=== PATIENT | male | born 1955 | race Caucasian/White ===

== ENCOUNTER → 2017-05-11 | Outpatient (CLI) | payer OTHER ==
[~2017-05-11] MED LIST: AMLO-110 PO; FRS/40 PO; GLC/500 PO; INSDGI SC; LISI40TA PO; SIMV40TA2 PO
[2017-05-11 13:31] LABS: ESTIMATED AVERAGE GLUCOSE 169 mg/dl; HA1C FLAG Normal (Normal)
== END | disposition home or self-care (01) ==
LOC: C.LABPVFM 08:50
PROVIDERS: ATTEND Family Medicine
DX: E11.9 Type 2 diabetes mellitus without complications (principal)

== ENCOUNTER → 2017-08-14 | Outpatient (CLI) | payer OTHER ==
[2017-08-14 12:30] LABS: HEMATOCRIT 50.1 % (42-52); MEAN CELL VOLUME 88.5 fL (80-100); MEAN CORPUSCULAR HEMOGLOBIN 29.9 pg (25-34); MEAN CORPUSCULAR HGB CONC 33.7 g/dl (32-36); MEAN PLATELET VOLUME 10.3 fL (7.4-10.4); PLATELET COUNT 221 K/uL (130-400); RED BLOOD COUNT 5.66 M/uL (4.7-6.1); WHITE BLOOD COUNT 8.03 K/uL (4.8-10.8)
[2017-08-14 13:05] LABS: ESTIMATED AVERAGE GLUCOSE 157 mg/dl; HA1C FLAG Normal (Normal)
[2017-08-14 14:19] LABS: ALT/SGPT 38 U/L (12-78); AST/SGOT 14 U/L (15-37); BLOOD UREA NITROGEN 18 mg/dl (7-18); BUN/CREATININE RATIO 20.1 (10-20); CALCIUM 9.1 mg/dl (8.5-10.1); CARBON DIOXIDE 21 mmol/L (21-32); CHLORIDE 107 mmol/L (98-107); CHOLESTEROL 164 mg/dl (0-200); CREATININE 0.91 mg/dl (0.60-1.40); GLUCOSE 162 mg/dl (70-99); POTASSIUM 4.1 mmol/L (3.5-5.1); SODIUM 140 mmol/L (136-145)
[2017-08-14 14:21] LABS: CHOLESTEROL/HDL RATIO 3.6; HDL CHOLESTEROL 45 mg/dl; LDL CHOLESTEROL CALCULATED 92 mg/dl; TRIGLYCERIDES 136 mg/dl (0-150); VERY LOW DENSITY LIPOPROT CALC 27 mg/dl
== END | disposition home or self-care (01) ==
LOC: C.LABPVFM 09:52
PROVIDERS: ATTEND Family Medicine
DX: E78.5 Hyperlipidemia, unspecified (principal); I10 Essential (primary) hypertension; E11.9 Type 2 diabetes mellitus without complications

== ENCOUNTER → 2018-02-26 | Day surgery (SDC) | payer OTHER ==
[2018-02-02 10:14] VITALS: Ht 182.9 cm; Wt 170.4 kg
[~2018-02-26] VITALS: Ht 182.9 cm; Wt 170.4 kg
[~2018-02-26] MED LIST changes: +500ML BSS 0.3ML EPI 1:1000PF IRRIG ONE; +ACETAMINOPHEN 325 MG TAB PO PRN; +AMVISC PLUS 0.8ML SYRINGE INT OCU ONE; +ASPCH81X PO; +ATROPINE SULFATE 0.1 MG/ML 5ML SYR IV PRN; +BRIMONIDINE TART 0.2% OP SOLN PER DROP CHARGE ONE; +BSS FLUSH ONE; +ENDOCOAT 0.85ML SYRINGE INT OCU ONE; +EpHEDrine SULFATE INJ 50 MG/ML AMP IV PRN; +EpINEphrine INJ 1MG/ML AMP 1 MG/ML AMP ONE; -FRS/40 PO; -GLC/500 PO; +LACTATED RINGER'S 1000ML 500 ML IV SCH; +LIDOCAINE 4% OP SOLN DROP CHARGE ONE; +LIDOCAINE 4% OP SOLN DROP CHARGE OPL SCH; +LIDOCAINE HCL 1% MPF 2 ML VIAL ONE; +METF1TAB53 PO; +MIDAZOLAM HCL 1 MG/ML 2ML VIAL ONE; +MIX: 3ML BSS AND 1ML EPI(PF) TOP ONE; +MOXIFLOXACIN OPH SOLN PER DROP CHARGE ONE; +NVLGI/PEN SC; +POVIDONE-IODINE OP SOLN 30 ML BTL ONE; +PROPARACAINE 0.5% OP SOLN PER DROP CHARGE OPL SCH; -SIMV40TA2 PO; +SIMV40TA4 PO; +TOBRAMYCIN/DEXAMETHASONE OPH OINT PER APPLN CHARGE ONE; +TRULICITY SC
--- NOTE | 2018-02-26 08:10 | History & Physical Bridge - SC ---
H&P Re-Evaluation Bridge Note: I have examined the patient, reviewed the History & Physical and in the interval since the performance of the History & Physical I have noted the following changes of clinical significance: No changes noted
[2018-02-26] MEDS: PHENYLEPHRINE HCL 2.5% OP SOLN PER DROP CHARGE OPL SCH ×2 (08:11→08:16)
[2018-02-26] MEDS: TROPICAMIDE 1% OP SOLN PER DROP CHARGE OPL SCH ×2 (08:12→08:17)
[2018-02-26] MEDS: CYCLOPENTOLATE HCL 1% OP SOLN PER DROP CHARGE OPL SCH ×2 (08:13→08:18)
[2018-02-26] MEDS: KETOROLAC 0.5% OP SOLN PER DROP CHARGE OPL SCH ×2 (08:14→08:19)
[2018-02-26] MEDS: MOXIFLOXACIN OPH SOLN PER DROP CHARGE OPL SCH ×2 (08:15→08:26)
--- NOTE | 2018-02-26 09:06 | [facility] Operative Report ---
Operative Report Operative Date Feb 26, 2018. Pre-Operative Diagnosis Left Eye Cataract Post-Operative Diagnosis same Procedure(s) Performed Left Cataract Phacoemulsification With Intraocular Lens Implant Surgeon Dr. Atilio Bolton Employee Benefits Specialist Surgeon(s) 0 Estimated Blood Loss 0 Findings cataract left eye Fluids see anesthesia record Specimens none Drains None Anesthesia Type MAC Complication(s) none Disposition no Recovery Room / PACU Indications decreased vision left eye Description of Procedure After informed consent was obtained in the holding area the patient was wheeled back to the operating room where cardiac monitoring leads and oxygen by nasal cannula was administered by Anesthesia. Gentle IV sedation was given, and the patient's left eye was prepped and draped in usual sterile fashion. A wire lid speculum was placed into the left eye and the operating microscope was swung into position. Using 0.12 forceps and a Supersharp blade a paracentesis port was made 2 o'clock hours away from the 3 o'clock position of the patient's left eye. 1% non-preserved Lidocaine was then injected into the anterior chamber for anesthesia. Flomax mix was injected into the eye. A 2.0 mm keratotome blade was then used to make a shelved clear corneal incision at the 3 o'clock position of the left eye. Amvisc was injected into the anterior chamber and a cystotome and Utrata forceps were used to perform a curvilinear capsulorrhexis. BSS on a hydrodissection cannula was used to hydrodissect the lens nucleus away from the capsular bag. The phacoemulsification handpiece was then used in a stop and chop fashion to remove the lens nucleus. The irrigation and aspiration handpiece was then used to remove the residual cortical material. Amvisc was injected into the capsular bag and anterior chamber and a Bausch [employer] Lomb MX60E 19.0 Diopter intraocular lens was injected into the capsular bag. Irrigation and aspiration handpiece was used to remove the residual viscoelastic material. The wounds were hydrated and noted to be watertight. The wire lid speculum was removed from the eye. Vigamox, Brimonidine, and TobraDex ointment were placed on the eye and it was shielded. It should be noted that EndoCoat was used extensively during the case to protect the cornea endothelium. DISPOSITION: The patient tolerated the procedure well and was wheeled to the post anesthesia care unit in stable condition. I attest to the content of the Intraoperative Record and any orders documented therein. Any exceptions are noted below. I attest to the content of the Intraoperative Record and any orders documented therein. Any exceptions are noted below.
--- NOTE | 2018-02-26 09:07 | Discharge Instructions-SurgCtr ---
Discharge Instructions Date of Service Feb 26, 2018. Visit Reason for Visit: Cataract Left Eye Discharge Discharge Diagnosis / Problem: cataract left eye Discharge Goals Goal(s): Improve function Medications Stopped Medications Name(s): metformin. last dose . Activity Recommendations Activity Limitations: per Instructions/Follow-up section Lifting Limitations: no more than 5 pounds Anesthesia . Post Anesthesia Instructions: If you have had General Anesthesia or IV Sedation: * Do not drive today. * Resume driving when surgeon permits. * Do not make important decisions or sign legal documents today. * Call surgeon for: 1. Temperature elevations greater than 101 degrees F. 2. Uncontrollable pain. 3. Excessive bleeding. 4. Persistent nausea and vomiting. 5. Medication intolerance (nausea, vomiting or rash). * For nausea and vomiting use only clear liquids such as: tea, soda, bouillon until nausea subsides, then gradually increase diet as tolerated. * If you have any concerns or questions, call your surgeon's office. If physician is unavailable and it is an emergency, call 911 or go to the nearest emergency room. . Instructions / Follow-Up Instructions / Follow-Up ACTIVITY RECOMMENDATIONS: * Light activities * You may walk outside, read, watch television. * Mild irritation and blurred vision are common for the first few days, redness around the white part of the eye is common. MEDICATIONS: Resume previous medications unless instructed otherwise by your surgeon. Eye drops (today and tomorrow): Cipro - one drop in operative eye every 2 hours while awake Prednisolone 1% - one drop in operative eye every 2 hours while awake Bromfenac - one drop in operative eye once daily SPECIAL CARE INSTRUCTIONS: * If any problems or concerns, please call Dr. Bolton's office at . * Keep plastic shield taped over eye to sleep at night. * Keep plastic shield taped over eye except to administer eye drops. * Keep plastic shield on until office visit the following day. FOLLOW UP VISIT: Follow-up with Dr. Bolton in the [place] office as scheduled. If not already scheduled, please call the office at . Diet Recommendations Home Diet: resume previous diet Procedures Procedures Performed: Left Cataract Phacoemulsification With Intraocular Lens Implant Pending Studies Studies pending at discharge: no Medical Emergencies . Who to Call and When: Medical Emergencies: If at any time you feel your situation is an emergency, please call 911 immediately. . Non-Emergent Contact Non-Emergency issues call your: [employer] Supervisor . . "Provider Documentation" section prepared by Tamir Bolton. .
[2018-02-26 09:10] VITALS: TEMP 36.3
--- NOTE | 2018-02-26 09:31 | Anesthesiology Progress Note ---
Anesthesia Post Op Note Date & Time Feb 26, 2018 at 09:30 Vital Signs Pain Intensity: 0 Vital Signs Past 12 Hours Date Time Temp Pulse Resp B/P (MAP) Pulse Ox O2 Delivery O2 Flow Rate FiO2 02/26/18 09:10 36.3 76 18 117/62 (80) 95 Room Air 02/26/18 07:55 36.9 80 18 167/96 (119) 97 Room Air Notes Mental Status: alert / awake / arousable, participated in evaluation Nausea / Vomiting: adequately controlled Pain: adequately controlled Airway Patency, RR, SpO2: stable & adequate BP & HR: stable & adequate Hydration State: stable & adequate Anesthetic Complications: no major complications apparent
[2018-02-26 09:33] VITALS: BP 151/70; PULSE 78; O2SAT 95
== END | disposition home or self-care (01) ==
LOC: X.SURG 07:29
PROVIDERS: ATTEND Ophthalmology
DX: E11.36 Type 2 diabetes mellitus with diabetic cataract (principal); H26.9 Unspecified cataract; I10 Essential (primary) hypertension; Z04.9 Encounter for examination and observation for unspecified reason; Z79.4 Long term (current) use of insulin; E66.9 Obesity, unspecified; Z79.899 Other long term (current) drug therapy; Z68.43 Body mass index [BMI] 50.0-59.9, adult

== ENCOUNTER 2019-03-26 05:17 | Inpatient (IN) ==
--- NOTE | 2019-02-26 15:48 | PAT Medication Instructions ---
Medication Instructions Date of Service February 26, 2019 Home Medications amlodipine 5 mg PO QAM aspirin [Aspir-81] 81 mg PO QAM dulaglutide [Trulicity] 0.75 mg SUBCUT WK insulin aspart U-100 [Novolog] 1 sliding scale dose SUBCUT insulin glargine [Lantus U-100] 60 unit SUBCUT QPM lisinopril 40 mg PO QAM metformin 1,000 mg PO BID simvastatin 40 mg PO QAM Continue as directed dulaglutide [Trulicity] 0.75 mg SUBCUT WK DO NOT take the morning of surgery insulin aspart U-100 [Novolog] 1 sliding scale dose SUBCUT lisinopril 40 mg PO QAM metformin 1,000 mg PO BID Take morning of surgery With a small sip of water, OTHERWISE NOTHING TO EAT OR DRINK AFTER MIDNIGHT: amlodipine 5 mg PO QAM aspirin [Aspir-81] 81 mg PO QAM simvastatin 40 mg PO QAM Take evening before surgery insulin aspart U-100 [Novolog] 1 sliding scale dose SUBCUT (as needed) insulin glargine [Lantus U-100] 60 unit SUBCUT QPM metformin 1,000 mg PO BID Other Notes If you have any questions please call us at [phone] or [phone] or [phone] or [phone]
--- NOTE | 2019-02-27 08:28 | Anesthesiology Consultation ---
Date of Service February 27, 2019 Assessment & Plan (1) Encounter for pre-operative examination: CHECK BSG AM DOS Chart Review Chart Review: Acceptable Risk for Surgery and Patient seen in Pre Admission Testing Teaching & Discussion Instructed NPO after midnight before surgery, except medications with 15 cc of water. Medication instructions provided according to the PAT guidelines. History Surgery Operation Date: 03/26/19 07:00 Proposed Procedures p Left Total Knee Arthroplasty - Terrance Colmenares MD Height/Weight Height: 6 ft Weight: 170.5 kg Allergies Allergy/AdvReac Type Severity Reaction Status Date / Time No Known Allergies Allergy . Verified 02/20/19 08:01 Medications Home Medications Medication Instructions Recorded Confirmed Last Taken amlodipine 5 mg PO QAM 02/20/19 02/20/19 Unknown aspirin [Aspir-81] 81 mg PO QAM 02/20/19 02/20/19 Unknown dulaglutide [Trulicity] 0.75 mg SUBCUT WK 02/20/19 02/20/19 Unknown insulin aspart U-100 [Novolog 1 sliding scale dose SUBCUT 02/20/19 02/20/19 Unknown U-100 Insulin aspart] USEASDIRECTD insulin glargine [Lantus U-100 60 unit SUBCUT QPM 02/20/19 02/20/19 Unknown Insulin] lisinopril 40 mg PO QAM 02/20/19 02/20/19 Unknown metformin 1,000 mg PO BID 02/20/19 02/20/19 Unknown simvastatin 40 mg PO QAM 02/20/19 02/20/19 Unknown Past Medical History Medical History Diabetes mellitus, type 2 Hyperlipidemia Hypertension Morbid (severe) obesity due to excess calories Osteoarthritis Exercise / Class Metabolic Activity II 4-5 Yardwork/Stairs/Walk up hill (Denies Cp or SOB with stairs, does daily) Past Surgical History Surgical History History of cataract extraction with lens replacement History of colonoscopy Past Anesthesia History No Hx of Anesthesia Complications and No Family Hx of Anesthesia Complications History of PONV No Hx of PONV, No Family Hx of PONV and No Hx of Motion Sickness Social History Smoking Status: Never smoker Smoking cigarettes per day: 0 Do You Dip or Chew Tobacco: No Hx Alcohol Use: Yes Alcohol type: other alcohol intake frequency: holidays/special occasions only Alcohol Intake Frequency Comment: RARE Hx Substance Use: No substance use type: does not use Review of Systems Pt denies any recent chest pain, shortness of breath, palpitations, cough, fever or URI. Physical Exam Vital Signs BP: 127/79 P: 90bpm SPO2: 95% RA T: 99.0 F R: 10 ENMT Mouth: + dental bridge (upper front) and + dental restorations (few caps); no chipped teeth and no loose teeth Thyromental Distance: > or= 3.5 Finger Breadths (3.5) Mallampati Class: II Neck + short neck, + thick neck, + limited neck extension (mildly) and + facial hair (long bushy thomas, but trimmed short around mouth) Respiratory normal respiratory effort Auscultation: lungs clear to auscultation bilaterally Cardiovascular Rate/Rhythm: regular rate and regular rhythm Heart Sounds: + murmur (I/ systolic R and L SB) Vessels: no carotid bruit Extremities: no edema Skin Chronic vascular insufficiency darkening of skin on B/L shins Testing Electrocardiogram Date: 02/27/19 Findings: + NSR @ (83) Chest X-Ray Date: 02/27/19 Findings: + NAD Laboratory Results 02/27/19 08:42 02/27/19 08:42 Blood Type O Positive 02/27/19 08:42 Antibody Screen NEGATIVE 02/27/19 08:42 PT 10.1 Seconds (9.0-12.0) 02/27/19 08:42 INR 1.0 (0.9-1.1) 02/27/19 08:42 APTT 25.4 Seconds (21.0-31.0) 02/27/19 08:42 Hemoglobin A1c 7.8 % (4.5-5.6) H 02/27/19 08:42
--- NOTE | 2019-02-27 09:54 | XRay Report ---
TWO VIEW CHEST CLINICAL HISTORY: Preoperative examination. FINDINGS: PA and lateral chest radiographs are compared to study dated 11/21/2009 and correlated with chest CT dated 04/01/2014. The cardiomediastinal silhouette is unremarkable. There is mild bibasilar a telectasis. The lungs and pleural spaces are otherwise clear. There is no pneumothorax. The bony thor ax appears intact. Degenerative change is noted throughout the thoracic spine. IMPRESSION: No active disease in the chest. Electronically signed by: David Coon M.D. 02/27/2019 9:53 AM
[2019-02-27 09:58] LABS: Basophils # (auto) 0.06 K/uL (0-0.2); Basophils % (auto) 0.5 %; Eosinophils % (auto) 2.6 %; Hematocrit (blood only) 47.4 % (42-52); Hemoglobin 16.3 g/dL (14.0-18.0); Immature Granulocytes # (auto) 0.08 K/uL (0.00-0.02); Immature Granulocytes % (auto) 0.7 %; Lymphocytes % (auto) 15.7 %; Mean Corpuscular Hgb Conc 34.4 g/dL (32-36); Mean Corpuscular Volume 88.1 fL (80-100); Mean Platelet Volume 10.2 fL (7.4-10.4); Monocytes # (auto) 0.86 K/uL (0.11-0.59); Monocytes % (auto) 7.5 %; Neutrophils # (auto) 8.34 K/uL (1.4-6.5); Platelet Count 246 K/uL (130-400); RDW Coefficient of Variation 13.9 % (11.5-14.5); RDW Standard Deviation 44.4 fL (36.4-46.3); Red Blood Count 5.38 M/uL (4.7-6.1); White Blood Count 11.44 K/uL (4.8-10.8)
[2019-02-27 10:08] LABS: Partial Thromboplastin Ratio 0.9; Partial Thromboplastin Time 25.4 Seconds (21.0-31.0); Prothrombin Time 10.1 Seconds (9.0-12.0)
[2019-02-27 10:12] LABS: BUN Creatinine Ratio 21.3 (10-20); Calcium 9.5 mg/dl (8.5-10.1); Creatinine Clr Calc Pharmacy 119.9 ml/min; Est GFR (African American) 90.7; Est GFR (Non-African American) 78.2; Potassium 4.5 mmol/L (3.5-5.1)
[2019-02-27 10:25] LABS: Estimated Average Glucose 177 mg/dl; Hemoglobin A1C 7.8 % (4.5-5.6)
--- NOTE | 2019-03-23 11:26 | History and Physical Report ---
DATE OF ADMISSION: 03/26/2019 CHIEF COMPLAINT: Bilateral knee pain and discomfort, left side greater than right. HISTORY OF PRESENT ILLNESS: A 64-year-old gentleman referred to me by my partner Dr. Felipe for surgical treatment of his knees. He has got a long history of bilateral knee pain and discomfort that has gradually gotten worse over the past 10 years. The left knee bothers him more than the right. He has been through extensive conservative treatment in the past including injections which have not helped at all lately. He has tried various different medicines which takes the edge off it at best. He has chronic pain. The more he walks, the more it hurts. It is global pain. His walking tolerance is a couple blocks. He has difficulty going up and down stairs. He has nighttime pain. He would like to proceed with surgical treatment. PAST MEDICAL HISTORY: 1. Diabetes x10-15 years with an A1c of 7.8. 2. Hypertension. 3. Elevated cholesterol. 4. Obesity with a BMI of 51. PAST SURGICAL HISTORY: None. ALLERGIES: None. CURRENT MEDICINES: 1. Metformin 100 mg twice a day. 2. Atorvastatin 40 mg. 3. Amlodipine 5 mg. 4. Tamsulosin 0.4 mg daily. 5. Lisinopril 40 mg. 6. Jeanette aspirin 81 mg a day. 7. Trulicity 1.5 mg once a week. 8. Lantus insulin 60 units once a day. 9. Humalog insulin 30 units with sliding scale meal time. SOCIAL HISTORY: A 63-year-old male. He is . Lives in [place]. 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 Rare alcohol intake. No tobacco use. FAMILY HISTORY: Noncontributory. REVIEW OF SYSTEMS: Significant for diabetes. Denies any chest pain, shortness of breath. No history of DVT or PE. No bleeding problems. PHYSICAL EXAMINATION: GENERAL: Reveals a very large middle-aged male. Looks to be in reasonably good health. HEENT: Benign. NECK: Supple. No lymphadenopathy. LUNGS: Clear to auscultation. HEART: Regular rate and rhythm. ABDOMEN: Soft, nontender, nondistended. EXTREMITIES: Grossly neurovascularly intact except as follows: Examination of both knees shows the patient walks with a bit of waddling gait. He has got varus alignment to both knees. Examination of left knee reveals varus alignment with bony hypertrophy medially. He is tender over the medial joint line. He has some small knee effusion. Range of motion 5-125. He has got some chronic stasis changes distally. No pain with hip motion. He is neurologically intact. Examination of the right knee reveals varus alignment. He has got bony hypertrophy medially with a small knee effusion. He is tender over the medial joint line. He has similar chronic stasis changes distally. No impending ulcerations. Range of motion 5-125. No instability. X-RAYS: X-rays of both knee revealed advanced bilateral knee DJD. Left side is a bit worse than the right. He has got complete loss of his medial joint space. He has got osteophytes off the medial femoral condyle and medial tibial plateau. 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 He has failed conservative treatment and would like to proceed with left knee replacement. PLAN: We are going to take him to the operating room and do a left total knee replacement. The risks and benefits of this procedure were explained to the patient including but not limited to DVT, PE, , infection, neurological injury, vascular injury, bleeding problem, pain, limited range of motion, stiffness, failure to relieve symptoms, incomplete relief of symptoms, need for further surgery in future, fracture, leg length inequality, nerve palsy, etc. The patient understands and desires to proceed. Informed consent was obtained. I did talk to him about his increased size and increased risk of infection, he is aware of this. We talked about holding his metformin and lisinopril the morning of surgery. We will have to control his swelling very carefully with his stasis changes. As far as discharge plans, he is planning to be discharged to home using [facility] home health program.
--- OUTSIDE RECORDS SUMMARY | 2019-03-26 05:20 | External Medical Summary | Continuity of Care Document ---
:1955 Author Name Ana Arias, Provider Address Unavailable Unavailable , Care Team Providers Name Role Phone Unavailable Unavailable Unavailable Jade Gandara Unavailable 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 FANNY Matta Quantity: 90 Refills: 3 Lisinopril 40 MG Oral Tablet; TAKE 1 TABLET DAILY D IRECTED. FANNY Matta Quantity: 90 Refills: 3 metFORMIN HCl - 1000 MG Oral Tablet; TAKE 1 TABLET TWI CE DAILY. FANNY Matta Quantity: 180 Refills: 3 OneTouch Verio In Vitro Strip; USE 1 STRIP 3 TIMES DAILY. , M.DEliane 100 Strip Box Quantity: 3 Refills: 3 BD Pen Needle Short U/F 31G X 8 MM; USE AND DISCARD 1 NEEDLE 3 TIMES A DAY FANNY Matta Start: 27-Dec-2012 Quantity: 90 Refills: 6 Lantus 100 UNIT/ML Subcutaneous Solution; inject 60 units @ MElianeDEliane 10 ML Vial Quantity: 6 Refills: 3 Procedures History of Oral Surgery Tooth Extraction Status: Completed Immunizations Influenza On: 01-Aug-2011 0:00 Influenza On: 2013 Family History Father Family history of cerebrovascular accident (CVA) (V17.1) (Z8 2.3) Status: Active Grandfather Family history of cerebrovascular accident (CVA) (V17.1) (Z8 2.3) Status: Active Social History - Smoking Status Never smoker Plan of Treatment Planned Observations Planned Goals not documented Results No Known Results Results not documented
[2019-03-26] MEDS ORDERED: LR 60ML/HR IV SCH (06:00)
[2019-03-26] MEDS ORDERED: LR 500ML BOLUS, THEN 15ML/HR IV SCH (06:00)
[2019-03-26] MEDS ORDERED: FAMOTIDINE 20 MG TAB PO SCH (06:00)
[2019-03-26] MEDS ORDERED: TRANEXAMIC ACID 1,000 MG **IV Pre-op IV SCH (06:00)
[2019-03-26] MEDS ORDERED: BUPIVACAINE LIPOSOME/PF 266 MG, BUPIVACAINE/EPINEPHRINE 50 ML, SODIUM CHLORIDE 0.9% 30 ... INFIL SCH (06:00)
[2019-03-26] MEDS ORDERED: GABAPENTIN 300 MG PO SCH (06:00)
[2019-03-26] MEDS ORDERED: SCOPOLAMINE 1.5 MG TDSY TD SCH (06:00)
[2019-03-26] MEDS ORDERED: ACETAMINOPHEN 500 MG TAB PO SCH (06:00)
[2019-03-26] MEDS ORDERED: CEFAZOLIN 3000MG 65 ML IV SCH (06:00)
[2019-03-26] MEDS ORDERED: METOCLOPRAMIDE HCL 10 MG TABLET PO SCH (06:00)
[2019-03-26] MEDS ORDERED: MIDAZOLAM HCL 1 MG/ML 2ML VIAL ONE ×3 (06:24→08:21)
[2019-03-26] MEDS ORDERED: fentaNYL citrate 100 MCG/2 ML VIAL ONE (06:24)
[2019-03-26] MEDS ORDERED: BUPIVACAINE 0.5 % 5 MG/1 ML PF 10ML VIAL ONE (06:36)
[2019-03-26] MEDS ORDERED: ROPIVACAINE 0.5% 5 MG/ML 30 ML VIAL ONE (06:37)
[2019-03-26] MEDS ORDERED: EPINEPHrine INJ 1 MG/ML AMP ONE (06:41)
[2019-03-26] MEDS ORDERED: SODIUM CHLORIDE 0.9% PF 50 ML VIAL ONE (06:41)
[2019-03-26] MEDS ORDERED: BACITRACIN INJ 50,000 UNIT VIAL ONE (06:41)
[2019-03-26] MEDS ORDERED: BUPIVACAINE LIPOSOME 1.3% 266 MG/20 ML VIAL ONE (06:41)
[2019-03-26] MEDS ORDERED: BUPIVACAINE 0.25% 30 ML VIAL ONE (06:41)
--- NOTE | 2019-03-26 06:50 | History & Physical Bridge Note ---
Date of Service March 26, 2019 History & Physical Bridge Note I have examined the patient, reviewed the History & Physical and in the interval since the performance of the History & Physical I have noted the following changes of clinical significance: no changes noted
[2019-03-26] MEDS ORDERED: ATROPINE SULFATE 0.1 MG/ML 10ML SYR IV PRN (07:37)
[2019-03-26] MEDS ORDERED: ePHEDrine sulfate 50 MG/ML AMP IV PRN (07:37)
--- NOTE | 2019-03-26 08:46 | Post Operative Brief Note ---
Immediate Post Op Note v1 Date of Surgery March 26, 2019 Pre & Post Diagnosis Operation Date: 03/26/19 07:00 Pre-Op Diagnosis: Left Knee, Advanced Degenerative Joint Disease Post-Op Diagnosis: Left Knee, Advanced Degenerative Joint Disease Procedure Operation Date: 03/26/19 07:00 Actual Procedures p Left Total Knee Arthroplasty(Left) - Terrance Colmenares MD Surgeon Terrance Colmenares MD Family Day Care Provider Alysha, PAC Estimated Blood Loss 50 Findings Consistent with Post-Op Diagnosis Fluids 800 cc Specimens Left Knee DJD Drains Hyde Catheter (16 Pashto Hyde Catheter inserted by Mo Norris PA-C with out difficulty. Clear yellow urine obtained- Anesthesia to monitor) Anesthesia Type Spinal MAC Complications none Disposition Accompanied Patient To Recovery: No
--- NOTE | 2019-03-26 09:04 | XRay Report ---
LEFT KNEE 2 VIEWS History: Left total knee arthroplasty. Degenerative arthritis. Postop. FINDINGS: The patient is status post a left total knee arthroplasty. The hardware is intact. No fract ure or dislocation. Skin sandro are in place. IMPRESSION: Left total knee arthroplasty. No evidence for hardware complication. Electronically signed by: Farhat Sánchez M.D. 03/26/2019 9:03 AM
[2019-03-26] MEDS ORDERED: PHARMACY GLYCEMIC MGMT CONSULT STA (10:21)
[2019-03-26] MEDS ORDERED: HYDROmorphone INJ 0.5 MG/0.5 ML SYR IV PRN (10:21)
[2019-03-26] MEDS ORDERED: NON-FORMULARY MEDICATION (Dulaglutide [Trulicity] 0.75 MG) SQ SCH (10:21)
[2019-03-26] MEDS ORDERED: BISACODYL 10 MG SUPP PR PRN (10:21)
[2019-03-26] MEDS ORDERED: GLUCAGON FOR INJ 1 MG VIAL SQ PRN (10:21)
[2019-03-26] MEDS ORDERED: NALOXONE HCL 0.4 MG/1 ML VIAL/CARP IV PRN (10:21)
[2019-03-26] MEDS ORDERED: ALUMINUM/MAGNESIUM SUSP 30 ML UDC PO PRN (10:21)
[2019-03-26] MEDS ORDERED: TAMSULOSIN HCL 0.4 MG CAP PO PRN (10:21)
[2019-03-26] MEDS ORDERED: GLUCOSE 40% GEL 15 GM TUBE PO PRN (10:21)
[2019-03-26] MEDS ORDERED: ONDANSETRON INJ 2 MG/ML 2 ML VIAL IV PRN (10:21)
[2019-03-26] MEDS ORDERED: LANTUS PER UNIT CHARGE SQ SCH (10:21)
[2019-03-26] MEDS ORDERED: MAGNESIUM HYDROXIDE SUSP 30 ML UDC PO PRN (10:21)
[2019-03-26] MEDS ORDERED: NON-FORMULARY MEDICATION (Insulin Aspart U-100 1 sliding scale dose) SQ SCH (10:21)
[2019-03-26] MEDS ORDERED: CARBOHYDRATES FOR HYPOGLYCEMIA PO PRN (10:21)
[2019-03-26] MEDS ORDERED: METOCLOPRAMIDE HCL INJ 5 MG/ML 2 ML VIAL IV PRN (10:21)
[2019-03-26] MEDS ORDERED: GLUCOSE 10 TABS/TUBE PO PRN (10:21)
[2019-03-26] MEDS ORDERED: DEXTROSE 50% 50 ML SYRINGE IV PRN (10:21)
[2019-03-26] MEDS: SODIUM CHLORIDE 0.9% 1000ML 1,000 ML IV SCH ×3 (10:52→23:19)
[2019-03-26] MEDS: TAPENTADOL HCL ER 50 MG TABCR PO SCH ×2 (10:52→20:59)
[2019-03-26] MEDS ORDERED: PHARMACY GLYCEMIC MGMT CONSULT PRN (10:58)
[2019-03-26] MEDS: ASPIRIN 81 MG ECTAB PO SCH ×2 (11:08→20:58)
[2019-03-26] MEDS: DOCUSATE SODIUM 100 MG CAP PO SCH ×2 (11:08→20:59)
[2019-03-26] MEDS: MULTIVITAMIN TAB PO SCH (11:08)
[2019-03-26] MEDS: KETOROLAC 30 MG/ML VIAL IV SCH ×3 (11:09→22:42)
--- NOTE | 2019-03-26 11:44 | Anesthesiology Progress Note ---
Date of Service March 26, 2019 Anesthesia Post Procedure Vital Signs Vital Signs: Temp Pulse Pulse Resp BP Pulse Ox 03/26/19 10:59 73 18 133/74 96 03/26/19 10:27 78 18 123/64 95 03/26/19 10:00 36.8 C 82 16 114/72 94 03/26/19 09:50 77 18 119/62 93 03/26/19 09:40 75 15 109/66 93 03/26/19 09:30 71 15 110/64 94 03/26/19 09:21 37.2 C 75 16 112/56 L 94 03/26/19 09:10 75 18 101/56 L 94 03/26/19 09:00 77 22 113/58 L 95 03/26/19 08:53 36.0 C L 75 12 113/78 96 Pain Intensity Left Knee: Pain Intensity: 0 Transfer of Care Handoff Completed per policy Notes Mental Status: alert / awake / arousable and participated in evaluation Patient Amnestic to Procedure: Yes Nausea / Vomiting: adequately controlled Pain: adequately controlled Airway Patency, RR, SpO2: stable & adequate BP & HR: stable & adequate Hydration State: stable & adequate Neuraxial Anesthesia: was administered and sensory block is resolving Anesthetic Complications: no major complications apparent
--- NOTE | 2019-03-26 12:46 | Pharmacy Report ---
Glycemic Control Consultation - Date of Service March 26, 2019 - Scope Scope: Glycemic Pharmacist consulted by Dr Colmenares on 03/26/19 for glycemic control and to write orders per [facility] inpatient glycemic control protocol - Objective Weight: 167.3 kg Accuchecks BSG (last 24hrs): 03/26/19 03/26/19 03/26/19 05:45 09:16 12:16 POC Glucose 101 H 116 H 98 HbA1c: 7.8 % (4.5-5.6) H 02/27/19 08:42 - Recent Pertinent Medications Outpatient Anti-diabetic Regimen: * Trulicity, metformin, Lantus 60u QAM, Novolog 22uTIDM * A1c = 7.8 % 02/27/19 - Assessment & Plan Assessment & Plan: ASSESSMENT: * Mr. De Santiago is a 64yo M unknown to the pharmacy glycemic service. He is POD: 0 for a TKA. 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 PMHx consistent with HLD, HTN, DM-II. Diet ordered, no steroids. * Outpt glycemic management adequate, as evidenced by A1C of 7.8%. Based on age and co morbidities goal A1C likely <7.5%. Outpt insulin requirements likely >120u/D. PLAN FOR INPATIENT GLYCEMIC CONTROL: * Holding outpatient oral diabetes medications * Basal insulin * no lantus ordered for today * QAM lantus scale start 03/27/19: BSGs <160mg/dL give 40 units, >/=160mg/dL give 50 units * Bolus insulin * NovoLog per scale ACHS or Q6hrs while NPO * Goal Range: Low 110 mg/dL - High 140 mg/dL * Correction Factor: 15 mg/dL/unit * Nutritional / Prandial insulin per carb ratio of 1 unit per 5 grams CHO consumed * Please note that the plan above was derived based on current level of insulin resistance and hospital stress. These recommendations are appropriate for inpatient admission only. Plan of care upon discharge will need to be reassessed to avoid potential outpatient hypo/hyperglycemia. Thank you.
[2019-03-26] MEDS: INSULIN ASPART 100 UNITS/ML 3 ML PEN SC SCH ×3 (13:07→21:16)
[2019-03-26] MEDS: ACETAMINOPHEN 500 MG TAB PO SCH ×2 (13:58→21:20)
[2019-03-26] MEDS: CEFAZOLIN 2000MG 2,000 MG/15 ML SYR IV SCH ×2 (13:58→22:41)
[2019-03-26] MEDS ORDERED: TRANEXAMIC ACID 1,000 MG in 0.9 % SODIUM CHLORIDE 100 ML IV SCH (15:00)
[2019-03-26] MEDS: CHECK SCOPOLAMINE PATCH PLACEMENT SCH ×2 (16:44→23:19)
[2019-03-26] MEDS: ASCORBIC ACID 500 MG TAB PO SCH (17:36)
[2019-03-26] MEDS: FERROUS GLUCONATE 324 MG TAB PO SCH (17:36)
[2019-03-26] MEDS: OXYCODONE HCL IR 5 MG TAB (IMMEDIATE RELEASE) PO PRN (17:51)
[2019-03-26] MEDS ORDERED: PNEUMOCOCCAL ADMINISTRATION CHARGE ONE (18:00)
[2019-03-26] MEDS ORDERED: PNEUMOCOCCAL POLYSACCHARIDES 25 MCG/0.5 ML VIAL/SYR IM ONE (18:00)
[2019-03-26] MEDS: AMLODIPINE BESYLATE 5 MG TAB PO SCH (20:58)
[2019-03-26] MEDS: SENNA 8.6 MG TAB PO SCH (20:58)
[2019-03-26] MEDS: SIMVASTATIN 40 MG TAB PO SCH (20:59)
--- NOTE | 2019-03-26 21:17 | Progress Note ---
DATE: 03/26/2019 SUBJECTIVE: A 64-year-old gentleman postop from a left knee replacement. He is doing pretty well. Really not having much pain yet. No chest pain or shortness of breath. Not feeling dizzy or lightheaded. OBJECTIVE: VITAL SIGNS: Temperature is 36.6. Vital signs stable. PHYSICAL EXAMINATION: GENERAL: Reveals a pleasant, middle-aged male. He is lying in bed, looks pretty comfortable. LUNGS: Clear to auscultation. HEART: Regular rate and rhythm. ABDOMEN: Soft, nontender, nondistended. EXTREMITIES: Grossly neurovascularly intact except as follows. Examination of the left lower extremity reveals the leg to be well aligned. Dressing is clean, dry, and intact. He can dorsiflex and plantarflex his foot appropriately. He is neurologically intact. He has got brisk refill. X-RAYS: X-ray of the left knee from recovery room reviewed. It shows left cemented posterior stabilized total knee arthroplasty. Components looked to be in good position. No signs of problems. ASSESSMENT: A 64-year-old gentleman postop from a left knee replacement, doing well. Pain is controlled. He is neurologically intact. PLAN: 1. DVT prophylaxis including thigh-high TEDs, SCDs, and aspirin twice a day. 2. PT/OT. Weight bear as tolerated. Left total knee protocol. 3. Pain control, doing pretty well with current pain regimen. 4. IV antibiotics x24 hours. 5. Disposition: He is going to be discharged to home using [facility] home health program once medically stable and recovered.
[2019-03-26] MEDS: LISINOPRIL 40 MG TAB PO SCH (21:20)
--- NOTE | 2019-03-26 23:21 | Operative Report ---
DATE OF OPERATION: 03/26/2019 SURGEON: Terrance Colmenares MD ENVIRONMENTAL SERVICES ATTENDANT: TRUMAN Dumont PREOPERATIVE DIAGNOSIS: Left knee degenerative joint disease. POSTOPERATIVE DIAGNOSIS: Left knee degenerative joint disease. PROCEDURE PERFORMED: Left cemented posterior stabilized total knee arthroplasty. COMPLICATIONS: None. ESTIMATED BLOOD LOSS: 50 mL. FLUID REPLACEMENT: 800 mL crystalloid fluid replacement. TOURNIQUET TIME: 60 minutes at 300 mmHg. ANESTHESIA: Spinal with an adductor canal block. DRAINS: None. SPECIMENS: Left knee sent for pathology. OPERATIVE INDICATIONS: The patient is a 64-year-old gentleman who was referred to me for surgical treatment of his left knee by my partner Dr. Felipe. The patient has a 10-year history of left knee pain and discomfort that has gotten gradually worse over time. He has been through extensive conservative treatment which has not helped lately. X-rays revealed advanced DJD. The patient elected to proceed with operative treatment. Of note, the patient is morbidly obese with a BMI of 51, which made the surgery significantly more difficult. OPERATIVE FINDINGS: Operative findings revealed advanced left knee DJD. He had extensive grade 4 ndcd-ib-cohh disease in the medial femoral condyle and medial tibial plateau. A varus alignment to his knee. He had a large knee joint effusion. He had osteophytes primarily in the medial compartment. OPERATIVE IMPLANTS: Operative implants consisted of: 1. A Biomet Vanguard size 70 left posterior stabilized femoral component. 2. A Biomet size 79 tibial tray. 3. A 10 mm posterior stabilized polyethylene insert. 4. A 31 x 8 all poly patella. OPERATIVE PROCEDURE: The patient was taken to the operating room, identified and placed on the operating table in supine position. All contact areas were appropriately padded. IV antibiotics were provided by anesthesia team. A spinal anesthetic and adductor canal block had been provided in the holding area. Hyde catheter was placed in sterile fashion. A left thigh tourniquet was then placed and left lower extremity was then prepped and draped in the usual sterile fashion. Left leg was elevated and exsanguinated with Esmarch and tourniquet was placed at 300 mmHg. An anterior approach to the left knee was then performed through a longitudinal incision centered over the patella. Sharp dissection was carried through the subcutaneous tissues down to the level of the extensor mechanism. A medial parapatellar arthrotomy incision was made. Some subperiosteal dissection was carried out medially. The fat pad was resected from beneath the patellar tendon. The lateral patellofemoral ligament was released. The patella was everted and the knee was flexed. The osteophytes were taken off the distal femur. The ACL and PCL were then released from the distal femur and the tibia subluxated anteriorly. The external tibial alignment jig was then placed in the anterior face of the tibia and adjusted 16 mm medially. Proximal tibial cut was made to remove about a millimeter or two of bone from most deficient aspect of the medial tibial plateau. Some osteophytes were taken off medial and posteromedially. Tibia size was size 79. Attention was then drawn to the femur. The distal femur was entered with a sharp drill bit. The intramedullary canal was suctioned. A left 6-degree valgus cutting guide was placed. Distal femoral cutting block was pinned in place. Distal femoral cut was made to take an additional 3 mm of bone off the distal femur. The femur was then sized to a size 70. We downsized this slightly. The AP cutting block was pinned parallel to the epicondylar axis, which was 4 degrees of external rotation. The anterior cut, anterior chamfer, posterior cut, posterior chamfer cuts were made. Box cutting guide was placed and adjusted slightly lateral and the box cut was made. The knee was flexed. The remnants of the medial and lateral menisci were excised. The osteophytes were taken off the posterior aspect of the femur. Trial femoral component was placed. Tibial tray was pinned in maximum external rotation and drill and stem punch were used to create a defect in the proximal tibia for the tibial tray. The knee was then trialed and the 10 mm insert fit most appropriately. Attention was then drawn to the patella. The patella was cleaned of all soft tissues. Patella thickness measured 23 mm in thickness, it was cut down to 14. It was sized to a size 31 patella. Lug holes were drilled for a 31 patella. Lateral osteophyte was removed. Patella button was placed. The knee was taken through range of motion and patella tracked nicely with no thumbs test. Attention was then drawn toward placing the permanent components. All trial components were removed. Bone plug was placed in the distal femur to limit blood loss. A double batch of Palacos G cement was mixed. A BiomLimeTrayguard size 70 left posterior stabilized femoral component, size 79 tibial tray, a 10 mm posterior stabilized polyethylene insert, and a 31 x 8 all poly patella were then cemented in place. The knee was brought out into full extension until cement hardened. A final cement check was then performed. Pericapsular tissues were injected with a total of 100 mL of combination of 20 mL of Exparel, 30 mL of normal saline, 50 mL of 0.25% Marcaine with epinephrine. The patient did receive 1 gram of tranexamic acid. The tourniquet was then let down for a final tourniquet time of 60 minutes. Hemostasis was assured with use of electrocautery. The extensor mechanism was then closed with a combination of #1 PDS suture and #1 Vicryl suture in a [id number] fashion. The extensor mechanism was checked and found to be intact. The subcutaneous tissue was then closed with #2 Dexon suture in a buried interrupted fashion and skin was closed with skin sandro. Leg was then cleaned, dried and a sterile dressing of Xeroform, 4 x 4's, sterile cast padding and Andriy bandage were applied. The patient was then transferred to the recovery room in stable condition. The patient tolerated the procedure well with no complications. All needle and sponge counts were correct at the end of the operation. I attest to the content of the Intraoperative Record and any orders documented therein. Any exception s are noted below.
[2019-03-27] MEDS: KETOROLAC 30 MG/ML VIAL IV SCH ×4 (04:54→22:40)
[2019-03-27 06:16] LABS: Hematocrit (blood only) 38.1 % (42-52); Hemoglobin 13.3 g/dL (14.0-18.0); Mean Corpuscular Hgb Conc 34.9 g/dL (32-36); Mean Corpuscular Volume 86.6 fL (80-100); Platelet Count 186 K/uL (130-400); RDW Coefficient of Variation 14.3 % (11.5-14.5); RDW Standard Deviation 44.9 fL (36.4-46.3); White Blood Count 8.28 K/uL (4.8-10.8)
[2019-03-27] MEDS: ACETAMINOPHEN 500 MG TAB PO SCH ×3 (06:34→22:40)
[2019-03-27 06:52] LABS: BUN Creatinine Ratio 21.9 (10-20); Calcium 8.1 mg/dl (8.5-10.1); Creatinine Clr Calc Pharmacy 127.1 ml/min; Est GFR (African American) 99.5; Est GFR (Non-African American) 85.8
[2019-03-27] MEDS: CHECK SCOPOLAMINE PATCH PLACEMENT SCH ×3 (07:06→22:40)
[2019-03-27] MEDS: MULTIVITAMIN TAB PO SCH (08:53)
[2019-03-27] MEDS: ASCORBIC ACID 500 MG TAB PO SCH ×2 (08:53→18:00)
[2019-03-27] MEDS: DOCUSATE SODIUM 100 MG CAP PO SCH ×2 (08:53→21:27)
[2019-03-27] MEDS: ASPIRIN 81 MG ECTAB PO SCH ×2 (08:53→21:26)
[2019-03-27] MEDS: FERROUS GLUCONATE 324 MG TAB PO SCH ×2 (08:54→18:01)
[2019-03-27] MEDS: INSULIN GLARGINE SOLOSTAR 100 UNITS/ML 3 ML PEN SC SCH (08:56)
[2019-03-27] MEDS: INSULIN ASPART 100 UNITS/ML 3 ML PEN SC SCH ×4 (08:57→21:46)
[2019-03-27] MEDS: OXYCODONE HCL IR 5 MG TAB (IMMEDIATE RELEASE) PO PRN ×3 (08:59→18:17)
[2019-03-27] MEDS: TAPENTADOL HCL ER 50 MG TABCR PO SCH ×2 (08:59→21:28)
--- NOTE | 2019-03-27 10:34 | Progress Note ---
DATE: 03/27/2019 SUBJECTIVE: A 64-year-old gentleman postop day 1 from left knee replacement. He is doing pretty well. Therapy went well this morning. Some pain, but manageable. No chest pain or shortness of breath. Not feeling dizzy or lightheaded. OBJECTIVE: VITAL SIGNS: Temperature 36.9. Vital signs stable. PHYSICAL EXAMINATION: GENERAL: Reveals a pleasant, middle-aged male. He was seen in his bedside chair and looks reasonably comfortable. EXTREMITIES: Examination of the left leg reveals the leg to be well aligned. Dressing is clean, dry and intact. No drainage. He can dorsiflex and plantarflex his foot appropriately. LABORATORY DATA: Hemoglobin 13.3. Hematocrit 38.1. Electrolytes are stable. ASSESSMENT: A 64-year-old gentleman postop day 1 from a left knee replacement, doing reasonably well. Pain is controlled. He is neurologically intact. PLAN: 1. DVT prophylaxis including thigh high TEDs, SCDs, and aspirin twice a day. 2. PT/OT. Weight bear as tolerated. Left total knee protocol. 3. Pain control, doing pretty well with current pain regimen. 4. Disposition: He is planning to be discharged to home with home health once adequately recovered.
[2019-03-27] MEDS: SENNA 8.6 MG TAB PO SCH (21:26)
[2019-03-27] MEDS: SIMVASTATIN 40 MG TAB PO SCH (21:26)
[2019-03-27] MEDS: AMLODIPINE BESYLATE 5 MG TAB PO SCH (21:27)
[2019-03-27] MEDS: LISINOPRIL 40 MG TAB PO SCH (21:27)
[2019-03-28] MEDS: KETOROLAC 30 MG/ML VIAL IV SCH (05:23)
[2019-03-28] MEDS: ACETAMINOPHEN 500 MG TAB PO SCH (06:38)
--- NOTE | 2019-03-28 07:48 | Progress Note ---
DATE: 03/28/2019 SUBJECTIVE: A 64-year-old gentleman postop day 2 from a left knee replacement. He is doing well. Pain is controlled. No chest pain or shortness of breath. Not feeling dizzy or lightheaded. OBJECTIVE: VITAL SIGNS: Temperature 36.9. Vital signs stable. GENERAL: Physical examination shows a pleasant elderly male. He is sitting up in bed, looks pretty comfortable. EXTREMITIES: Examination of the left leg reveals the leg to be well aligned. Dressing is clean, dry and intact. No significant drainage. Calf is soft and supple. He is neurologically intact. ASSESSMENT: A 64-year-old gentleman postop day 2 from a left knee replacement, doing well. Pain is controlled. PLAN: 1. DVT prophylaxis including thigh-high TEDs, SCDs, and aspirin twice a day. 2. PT/OT. Weight bear as tolerated. Left total knee protocol. 3. Pain control, doing pretty well with current pain regimen. 4. Disposition: Plan to discharge to home with some home health later today.
[2019-03-28] MEDS: OXYCODONE HCL IR 5 MG TAB (IMMEDIATE RELEASE) PO PRN (08:00)
[2019-03-28] MEDS: CHECK SCOPOLAMINE PATCH PLACEMENT SCH (08:01)
[2019-03-28] MEDS: FERROUS GLUCONATE 324 MG TAB PO SCH (08:02)
[2019-03-28] MEDS: ASCORBIC ACID 500 MG TAB PO SCH (08:02)
[2019-03-28] MEDS: MULTIVITAMIN TAB PO SCH (08:03)
[2019-03-28] MEDS: DOCUSATE SODIUM 100 MG CAP PO SCH (08:03)
[2019-03-28] MEDS: ASPIRIN 81 MG ECTAB PO SCH (08:03)
[2019-03-28] MEDS: TAPENTADOL HCL ER 50 MG TABCR PO SCH (08:04)
[2019-03-28] MEDS: INSULIN ASPART 100 UNITS/ML 3 ML PEN SC SCH (08:54)
[2019-03-28] MEDS: INSULIN GLARGINE SOLOSTAR 100 UNITS/ML 3 ML PEN SC SCH (08:54)
--- NOTE | 2019-04-02 14:56 | Discharge Summary ---
ADMITTING PHYSICIAN AND SURGEON: Dr. Terrance Colmenares. ADMITTING DIAGNOSIS: Left knee degenerative joint disease. SURGERY PERFORMED: Left total knee arthroplasty. SECONDARY DIAGNOSES: Diabetes, hypertension, elevated cholesterol, obesity. CONSULTS: None obtained. HISTORY AND PHYSICAL EXAMINATION: Well documented in the patient's chart. HOSPITAL COURSE: The patient was admitted on 03/26/2019 underwent total knee arthroplasty, tolerated the procedure well. There were no complications. He was transferred to the PACU postoperatively and later to the orthopedic floor for further care. He was given Ancef for antibiotic prophylaxis, CHELSEY stockings, SCDs and aspirin for DVT prophylaxis. Hemoglobin, hematocrit and vital signs were monitored during his hospital stay and remained stable. He did not require any blood transfusions. There were no complications. By postoperative day 2, he was tolerating a diabetic diet. Pain was controlled with oral pain medicine. He was participating in physical therapy. On postop day 2 he was discharged home, set up with home health services, given printed discharge instructions as well as new prescriptions for extra strength Tylenol, aspirin and oxycodone. Continue home medications, continue physical therapy, weightbearing as tolerated, CHELSEY stockings. Follow up approximately 2 weeks postop or sooner if there are any problems or concerns.
== END 2019-03-28 11:24 | disposition home health service (06) | DRG 470 ==
LOC: ASU 05:17 → 3E 08:51

== ENCOUNTER 2019-10-08 06:32 | Inpatient (IN) ==
--- NOTE | 2019-09-24 13:59 | Anesthesiology Consultation ---
Date of Service September 24, 2019 TKA in February 2019 under SAB, PNB, propofol sedation. No noted anesthetic complications Assessment & Plan (1) Encounter for pre-operative examination: Chart Review Chart Review: Acceptable Risk for Surgery and Patient NOT seen in Pre Admission Testing Consults Requested none History Surgery Operation Date: 10/08/19 10:45 Proposed Procedures p Right Total Knee Arthroplasty - Terrance Colmenares MD Height/Weight Height: 6 ft Weight: 115.666 kg Allergies Allergy/AdvReac Type Severity Reaction Status Date / Time No Known Allergies Allergy . Verified 03/26/19 05:51 Medications Home Medications Medication Instructions Recorded Confirmed Last Taken Lantus U-100 Insulin 60 unit SUBCUT QAM 02/20/19 09/12/19 03/26/19 04:30 Novolog U-100 Insulin aspart 1 sliding scale dose SUBCUT 02/20/19 09/12/19 03/25/19 19:30 USEASDIRECTD Trulicity 0.75 mg SUBCUT WK 02/20/19 09/12/19 03/24/19 amlodipine 5 mg PO QPM 02/20/19 09/12/19 03/25/19 22:00 lisinopril 40 mg PO QPM 02/20/19 09/12/19 03/24/19 22:00 metformin 1,000 mg PO BID 02/20/19 09/12/19 03/24/19 09:00 simvastatin 40 mg PO QPM 02/20/19 09/12/19 03/25/19 22:00 aspirin [Aspirin Low Dose] 81 mg PO DAILY 09/12/19 09/12/19 Unknown Past Medical History Medical History Diabetes mellitus, type 2 IDDM Hyperlipidemia Hypertension Morbid (severe) obesity due to excess calories Osteoarthritis Past Family History Family History Mother FHx: skin cancer Other No family history of adverse response to anesthesia Past Surgical History Surgical History History of cataract extraction with lens replacement Left History of colonoscopy History of total knee replacement Left Social History Smoking Status: Never smoker Smoking cigarettes per day: 0 Do You Dip or Chew Tobacco: No Hx Alcohol Use: Yes Alcohol type: other alcohol intake frequency: holidays/special occasions only Hx Substance Use: No substance use type: does not use Testing Electrocardiogram Date: 02/27/19 Findings: + NSR @ Chest X-Ray Date: 02/27/19 Findings: + NAD
--- NOTE | 2019-10-02 13:57 | History and Physical Report ---
DATE OF ADMISSION: 10/08/2019 CHIEF COMPLAINT: Right knee pain. HISTORY OF PRESENT ILLNESS: The patient is a 64-year-old gentleman who presents for treatment of his right knee. He is now about 6 months out from a left knee replacement done at the end of February. Left knee is doing well. He continues to be limited by right knee pain. He has got a 10-year history of knee pain and discomfort that has gradually just gotten worse over time. He has taken various medicines which have not helped much at all. Pain is mostly medial, but some global pain. The more he walks, the more it hurts. Very happy with his left knee and now limited by his right knee and would like to have that fixed. Of note, since the patient's previous surgery, he has lost some weight, as he been able to little bit more active, but limited by his knee pain. He is on low dose insulin now. PAST MEDICAL HISTORY: Significant for: 1. Diabetes x15 years. 2. Hypertension. 3. Elevated cholesterol. 4. Obesity with BMI of 35. PAST SURGICAL HISTORY: Left knee replacement done on 03/28/2019. ALLERGIES: None. CURRENT MEDICINES: Include: 1. Metformin 1000 mg twice a day. 2. Atorvastatin 40 mg a day. 3. Amlodipine 5 mg. 4. Tamsulosin 0.4 mg. 5. Lisinopril 40 mg. 6. Jeanette aspirin 81 mg a day. 7. Trulicity 1.5 mg once a week. 8. Lantus insulin. 9. Humalog insulin. SOCIAL HISTORY: A 64-year-old male. He is . Lives in [place]. He is retired. 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 Rare alcohol intake. Does not smoke. FAMILY HISTORY: Noncontributory. REVIEW OF SYSTEMS: Significant for diabetes. Denies any current chest pain or shortness of breath. No history of DVT or PE. No known bleeding problems. PHYSICAL EXAMINATION: GENERAL: Shows a pleasant, fairly large middle-aged male. HEENT: Benign. NECK: Supple, no lymphadenopathy. LUNGS: Clear to auscultation. HEART: Has a regular rate and rhythm. ABDOMEN: Soft, nontender, nondistended. EXTREMITIES: Grossly neurovascularly intact except as follows: Examination of the right knee reveals the patient walks with a varus deformity to his knee. He has tender with medial joint line. Small knee effusion. He has got some bony hypertrophy medially. Range of motion 0-125. No instability. No pain with hip motion. Examination of the knee reveals a well-healed incision. Minimal swelling. Range of motion 0-125. Good straight leg raise. X-RAYS: X-rays of the right knee reviewed. Shows advanced right knee DJD. He has got complete loss of his medial joint space. He has got a little bit of tibial femoral subluxation. He got some osteophytes off the medial femoral condyle as well as some small osteophytes laterally. He has got some subchondral sclerosis. ASSESSMENT: A 64-year-old gentleman now 6+ months out from a left knee replacement, doing well with some right knee degenerative joint disease. He has failed conservative treatment and would like to have his right knee replaced. PLAN: We will take him to the operating room and do right total knee replacement. The risks and benefits of this procedure were explained to the patient including but not limited to DVT, PE, , infection, neurological injury, vascular injury, bleeding problem, pain, limited range of motion, stiffness, failure to relieve symptoms, incomplete relief of symptoms, need for further surgery in future, fracture, leg length inequality, nerve palsy, persistent pain, etc. The patient understands and desires to proceed. Informed consent was obtained. As far as discharge plans, he is planning to be discharged to home using [facility] home health program. He knows to hold his metformin and lisinopril the morning of surgery.
[~2019-10-08 06:32] MED LIST changes: -500ML BSS 0.3ML EPI 1:1000PF IRRIG ONE; -ACETAMINOPHEN 325 MG TAB PO PRN; +ACETAMINOPHEN 500 MG TAB PO SCH; -AMLO-110 PO; -AMVISC PLUS 0.8ML SYRINGE INT OCU ONE; -ASPCH81X PO; -ATROPINE SULFATE 0.1 MG/ML 5ML SYR IV PRN; -BRIMONIDINE TART 0.2% OP SOLN PER DROP CHARGE ONE; -BSS FLUSH ONE; +BUPIVACAINE LIPOSOME/PF 266 MG, BUPIVACAINE/EPINEPHRINE 50 ML, SODIUM CHLORIDE 0.9% 30 ... INFIL SCH; +CEFAZOLIN 3000MG 72.5 ML IV SCH; -ENDOCOAT 0.85ML SYRINGE INT OCU ONE; -EpHEDrine SULFATE INJ 50 MG/ML AMP IV PRN; -EpINEphrine INJ 1MG/ML AMP 1 MG/ML AMP ONE; +FAMOTIDINE 20 MG TAB PO SCH; +GABAPENTIN 300 MG CAP PO SCH; -INSDGI SC; -LACTATED RINGER'S 1000ML 500 ML IV SCH; -LIDOCAINE 4% OP SOLN DROP CHARGE ONE; -LIDOCAINE 4% OP SOLN DROP CHARGE OPL SCH; -LIDOCAINE HCL 1% MPF 2 ML VIAL ONE; -LISI40TA PO; +LR 15ML/HR IV SCH; +LR 60ML/HR IV SCH; -METF1TAB53 PO; +METOCLOPRAMIDE HCL 10 MG TABLET PO SCH; -MIDAZOLAM HCL 1 MG/ML 2ML VIAL ONE; -MIX: 3ML BSS AND 1ML EPI(PF) TOP ONE; -MOXIFLOXACIN OPH SOLN PER DROP CHARGE ONE; -NVLGI/PEN SC; -POVIDONE-IODINE OP SOLN 30 ML BTL ONE; -PROPARACAINE 0.5% OP SOLN PER DROP CHARGE OPL SCH; +SCOPOLAMINE 1.5 MG TDSY TD SCH; -SIMV40TA4 PO; -TOBRAMYCIN/DEXAMETHASONE OPH OINT PER APPLN CHARGE ONE; +TRANEXAMIC ACID 1,000 MG **IV Intra-op IV SCH; -TRULICITY SC
[2019-10-08] MEDS ORDERED: BUPIVACAINE 0.5 % 5 MG/1 ML PF 10ML VIAL ONE (06:36)
[2019-10-08] MEDS ORDERED: BUPIVACAINE 0.25% 30 ML VIAL ONE (06:37)
--- NOTE | 2019-10-08 06:56 | History & Physical Bridge Note ---
Date of Service October 08, 2019 History & Physical Bridge Note I have examined the patient, reviewed the History & Physical and in the interval since the performance of the History & Physical I have noted the following changes of clinical significance: no changes noted
[2019-10-08] MEDS ORDERED: fentaNYL citrate 100 MCG/2 ML VIAL ONE (07:35)
[2019-10-08] MEDS ORDERED: MIDAZOLAM HCL 1 MG/ML 2ML VIAL ONE ×2 (07:35→09:31)
[2019-10-08] MEDS ORDERED: PROPOFOL IV EMULSION 10 MG/ML 20 ML VIAL IV ONE ×3 (07:38→10:10)
[2019-10-08] MEDS ORDERED: ONDANSETRON INJ 2 MG/ML 2 ML VIAL ONE (07:38)
[2019-10-08] MEDS ORDERED: DEXAMETHASONE SOD INJ 4 MG/ML VIAL ONE (07:38)
[2019-10-08] MEDS ORDERED: ONDANSETRON INJ 2 MG/ML 2 ML VIAL IV PRN ×2 (08:09→11:43)
[2019-10-08] MEDS ORDERED: ATROPINE SULFATE 0.1 MG/ML 10ML SYR IV PRN (08:09)
[2019-10-08] MEDS ORDERED: ePHEDrine sulfate 50 MG/ML AMP IV PRN (08:09)
[2019-10-08] MEDS ORDERED: fentaNYL citrate 100 MCG/2 ML VIAL IV PRN (08:09)
[2019-10-08] MEDS ORDERED: PHENYLEPHRINE 100MCG/ML 5ML SYR ONE ×2 (08:58→09:47)
[2019-10-08] MEDS: BUPIVACAINE/EPINEPHRINE 0.25% 1:200,000 30 ML VIAL ONE ×2 (09:19→09:41)
[2019-10-08] MEDS: BUPIVACAINE LIPOSOME 1.3% 266 MG/20 ML VIAL ONE ×2 (09:19→09:41)
[2019-10-08] MEDS: SODIUM CHLORIDE 0.9% PF 50 ML VIAL ONE ×2 (09:19→09:42)
[2019-10-08] MEDS: BACITRACIN INJ 50,000 UNIT VIAL ONE ×2 (09:38→09:41)
--- NOTE | 2019-10-08 10:30 | Post Operative Brief Note ---
PG Immediate Post Op with CF Date of Surgery October 08, 2019 Pre & Post Diagnosis Operation Date: 10/08/19 08:50 Pre-Op Diagnosis: Right Knee Advanced Degenerative Joint Disease Post-Op Diagnosis: Right Knee Advanced Degenerative Joint Disease I identified the patient and participated in the time-out.: Yes Procedure Operation Date: 10/08/19 08:50 Actual Procedures p Right Total Knee Arthroplasty(Right) - Terrance Colmenares MD Surgeon Terrance Colmenares MD Trash Man Alysha, PAC Estimated Blood Loss 50 Findings Consistent with Post-Op Diagnosis Fluids 1400 cc Specimens Specimen Description: A: Right knee bone & tissue Drains Hyde Catheter Anesthesia Type Spinal MAC Disposition Accompanied Patient To Recovery: No Disposition: Recovery Room
--- NOTE | 2019-10-08 11:03 | XRay Report ---
XR knee RT 1 or 2V routine CLINICAL HISTORY: 64 years-old Male presenting with Surgical Post Op. TECHNIQUE: Frontal lateral views of the right knee were obtained. COMPARISON: 07/29/2019. FINDINGS: There has been interval postsurgical changes of total right knee arthroplasty with patellar resurfaci ng. Expected intra-articular and soft tissue emphysema. Overlying skin sandro. No periprosthetic gris ency or malalignment. IMPRESSION: Expected postsurgical changes status post total right knee arthroplasty with patellar resurfacing. Electronically signed by: Ludin Sanders M.D. 10/08/2019 11:02 AM
[2019-10-08] MEDS ORDERED: NALOXONE HCL 0.4 MG/1 ML VIAL/CARP IV PRN (11:43)
[2019-10-08] MEDS ORDERED: GLUCOSE 40% GEL 15 GM TUBE PO PRN ×2 (11:43→12:15)
[2019-10-08] MEDS ORDERED: CARBOHYDRATES FOR HYPOGLYCEMIA PO PRN ×2 (11:43→12:15)
[2019-10-08] MEDS ORDERED: TAMSULOSIN HCL 0.4 MG CAP PO PRN (11:43)
[2019-10-08] MEDS ORDERED: bisacodyL 10 MG SUPP PR PRN (11:43)
[2019-10-08] MEDS ORDERED: GLUCOSE 10 TABS/TUBE PO PRN ×2 (11:43→12:15)
[2019-10-08] MEDS ORDERED: ALUMINUM/MAGNESIUM SUSP 30 ML UDC PO PRN (11:43)
[2019-10-08] MEDS ORDERED: HYDROmorphone INJ 0.5 MG/0.5 ML SYR IV PRN (11:43)
[2019-10-08] MEDS ORDERED: NON-FORMULARY MEDICATION (Dulaglutide [Trulicity] 0.75 MG) SQ SCH (11:43)
[2019-10-08] MEDS ORDERED: GLUCAGON FOR INJ 1 MG VIAL SQ PRN (11:43)
[2019-10-08] MEDS ORDERED: MAGNESIUM HYDROXIDE SUSP 30 ML UDC PO PRN (11:43)
[2019-10-08] MEDS ORDERED: DEXTROSE 50% 50 ML SYRINGE IV PRN ×2 (11:43→12:15)
[2019-10-08] MEDS ORDERED: METOCLOPRAMIDE HCL INJ 5 MG/ML 2 ML VIAL IV PRN (11:43)
[2019-10-08] MEDS ORDERED: PHARMACY GLYCEMIC MGMT CONSULT PRN (11:49)
[2019-10-08] MEDS ORDERED: GLUCAGON FOR INJ 1 MG VIAL IM PRN (12:15)
[2019-10-08] MEDS ORDERED: INSULIN GLARGINE SOLOSTAR 100 UNITS/ML 3 ML PEN SC ONE (12:30)
[2019-10-08] MEDS: INSULIN ASPART 100 UNITS/ML 3 ML PEN SC SCH ×3 (12:42→21:38)
[2019-10-08] MEDS: SODIUM CHLORIDE 0.9% 1000ML 1,000 ML IV SCH ×2 (12:47→18:13)
[2019-10-08] MEDS: OXYCODONE HCL IR 5 MG TAB (IMMEDIATE RELEASE) PO PRN ×2 (12:47→19:41)
[2019-10-08] MEDS: KETOROLAC 30 MG/ML VIAL IV SCH ×2 (12:49→18:29)
[2019-10-08] MEDS: ACETAMINOPHEN 500 MG TAB PO SCH ×2 (12:49→21:32)
--- NOTE | 2019-10-08 13:01 | Operative Report ---
Post Operative Report Pre & Post Diagnosis Operation Date: 10/08/19 08:50 Pre-Op Diagnosis: Right Knee Advanced Degenerative Joint Disease Post-Op Diagnosis: Right Knee Advanced Degenerative Joint Disease I identified the patient and participated in the time-out.: Yes Procedure Operation Date: 10/08/19 08:50 Actual Procedures p Right Total Knee Arthroplasty(Right) - Terrance Colmenares MD Surgeon Terrance Colmenares MD Drafting Layout Man Alysha, PAC Estimated Blood Loss 50 Findings Consistent with Post-Op Diagnosis Operative findings revealed advanced right knee DJD with extensive grade 4 hlww-ef-scet disease of the medial femoral condyle medial to plateau with eburnation in both sides. He had some grade 3 changes of patellofemoral joint. Fairly well-preserved lateral compartment. Moderate-sized joint effusion. He had a fixed varus deformity to his knee. Fluids 1400 cc Specimens Right knee sent for pathology. Drains None. Anesthesia Type Spinal MAC Complications none Disposition Accompanied Patient To Recovery: No Disposition: Recovery Room Indications Patient is a 64-year-old gentleman is had a long history of bilateral knee pain discomfort peers been through extensive conservative treatment the past. He underwent a left knee replacement 6 months ago and is done remarkably well from this. He continued be limited by right knee pain discomfort. X-rays show advanced medial compartment arthritis. He elected proceed with surgical treatment. Description of Procedure Operative implants consisted of: 1. A Biomet Vanguard size 70 right posterior by femoral component. 2. Biomet size 79 tibial tray. 3. 10 mm posterior box polyethylene insert. 4. 31 x 8 all poly-patella. Patient was taken to the operating room identified and placed on the operating table supine position for a contractor properly padded. IV antibiotics were by anesthesia team. A spinal anesthetic and abductor canal block had provided holding area. Hyde catheter was placed in sterile fashion with a right thigh turn was then placed in the right lower extremities and prepped and draped in usual sterile fashion. The right leg was elevated and exsanguinated with use of an Esmarch and turns placed at 300 mmHg. An anterior approach to the right knee was then performed to longitudinal incisions over the patella. Sharp lysis got through subcutaneous cyst download the extensor mechanism. A medial parapatellar arthrotomy incision was made. Some subperiosteal dissection carried out medially. The patch pad was resected from the patella tendon. Patellofemoral ligament is released. Patella subluxate laterally and the knee was flexed. The osteophytes were taken off the distal femur. The ACL and PCL were then released and the distal femur the tibia subluxated anteriorly. The external treatment line jig is then placed in the interface it to be injected 16 mm medially. Proximal tibial cut was made to move out a millimeter or 2 of bone from the most efficient aspect medial to plateau. Tibia was then sized to a size 79. Attenti on drawn the femur. Distal femur was entered with a sharp drill followed by the intramedullary thomas. The canal with suctioned. A right 6 degree valgus cutting guide was placed. This femoral cutting block was pinned in place but this femoral cut was made to take an additional 3 mm of bone off the distal femur. Femur was then sized to a size 70. The AP block was pinned parallel to the epicondylar axis which is 30 degrees of external rotation with anterior cut, anterior chamfer, posterior cut, posterior chamfer cuts were made. Box cutting guide was placed in just slight lateral and the box cut was made. The knee was flexed. The remnants of the medial lateral menisci were excised. The osteophytes were taken off the posterior aspect of the femur. A trial femoral component was placed. The tibial tray was pinned in maximum ex rotation and drilled stem punch wheeze greatly affecting proximal tib-fib tibial tray. The knee was then trialed the 10 mm insert fit most appropriately. 10 tender on the patella. Patella was cleaned of all soft tissue. Patella thickness measured 22 mm in thickness it was cut down to 13. Was sized to a size 31 patella. Low holes were drilled for 31 patella. Lateral osteophytes removed. Patella button was placed. Knee was taken through range of motion patella tracked nicely with no thumbs test. Attention turned to placing the permanent components. All trial components removed. Bone plug was placed in the distal femur and lumbar blood loss but apara close G cement was mixed. Biomet Vanguard size 70 right posterior by femoral component, size 79 tibial tray, 10 mm posterior bite polyethylene insert, and a 31 x 8 all poly-patella were then cemented in place. Knee is brought into full extension all cement hardened profound symmetrical time performed. Pericapsular tissues were injected with a total of 100 cc of combination of 20 cc of Exparel, 30 cc normal saline, 50 cc of quarter percent Marcaine with epinephrine. Patient received 1 g of tranexamic acid. The tear was then let down for turn time 61 minutes but hemostasis assured use electrocautery. Wound the wound was once again irrigated. The extensor mechanism closed with a combination of 1 PDS suture #1 Vicryl suture in [id number] fashion. Extensor mechanism checked found be intact and the subcutaneous tissue then closed with 2 Dexon suture buried nerve fascia skin was closed skin sandro. Leg was then cleaned and dried and sterile dressing applied Xeroform, 4 x 4's, sterile cast padding and Andriy bandage were applied. Patient transferred to the recovery room in stable condition. Patient tolerated procedure well no complication. All needle sponge counts are correct at the end the operation. I attest to the content of the Intraoperative Record and any orders documented therein. Any exceptions are noted below.
--- NOTE | 2019-10-08 13:45 | Anesthesiology Progress Note ---
Date of Service October 08, 2019 Anesthesia Post Procedure Vital Signs Vital Signs: Temp Pulse Pulse Pulse Resp BP BP 10/08/19 12:37 88 16 10/08/19 12:05 36.9 C 80 18 118/65 10/08/19 11:30 36.9 C 81 18 113/71 10/08/19 11:16 77 19 10/08/19 11:15 79 17 117/61 10/08/19 11:12 36.6 C 10/08/19 11:11 82 17 101/66 10/08/19 11:10 79 16 10/08/19 11:06 78 21 10/08/19 11:05 80 18 109/59 L 10/08/19 11:04 80 15 109/60 10/08/19 11:02 79 14 10/08/19 11:01 79 20 109/60 10/08/19 11:00 80 15 10/08/19 10:56 79 18 109/61 10/08/19 10:55 79 13 10/08/19 10:51 79 19 10/08/19 10:50 78 19 108/57 L 10/08/19 10:46 77 17 103/55 L 10/08/19 10:45 77 19 10/08/19 10:41 77 23 101/45 L 10/08/19 10:40 79 17 10/08/19 10:37 79 22 10/08/19 10:36 36.5 C 77 76 20 95/53 L 95/53 L 10/08/19 07:00 37 C 88 20 BP Pulse Ox 10/08/19 12:37 135/72 95 10/08/19 12:05 95 10/08/19 11:30 96 10/08/19 11:16 97 10/08/19 11:15 96 10/08/19 11:12 97 10/08/19 11:11 98 10/08/19 11:10 98 10/08/19 11:06 96 10/08/19 11:05 96 10/08/19 11:04 98 10/08/19 11:02 98 10/08/19 11:01 97 10/08/19 11:00 96 10/08/19 10:56 97 10/08/19 10:55 97 10/08/19 10:51 96 10/08/19 10:50 96 10/08/19 10:46 98 10/08/19 10:45 99 10/08/19 10:41 98 10/08/19 10:40 98 10/08/19 10:37 98 10/08/19 10:36 98 10/08/19 07:00 156/69 H 96 Pain Intensity Right Knee: Pain Intensity: 2 Transfer of Care Handoff Completed per policy Notes Mental Status: alert / awake / arousable and participated in evaluation Patient Amnestic to Procedure: Yes Nausea / Vomiting: adequately controlled Pain: adequately controlled Airway Patency, RR, SpO2: stable & adequate BP & HR: stable & adequate Hydration State: stable & adequate Neuraxial Anesthesia: was administered and sensory block is resolving Anesthetic Complications: no major complications apparent and Pt Satisfied with anesthetic care
--- NOTE | 2019-10-08 14:08 | Pharmacy Report ---
Glycemic Control Consultation - Date of Service October 08, 2019 - Scope Scope: Glycemic Pharmacist consulted by Dr Colmenares on 10/08/19 for glycemic control and to write orders per [facility] inpatient glycemic control protocol - Objective Weight: 115.666 kg Accuchecks BSG (last 24hrs): 10/08/19 10/08/19 10/08/19 07:06 10:40 12:23 POC Glucose 132 H 162 H 145 H - Recent Pertinent Medications Outpatient Anti-diabetic Regimen: * Lantus 57 units daily (last dose of Lantus was AM of 10/07/19 * Novolog SSI (baseline of 22 units +/- units based on BSG) - patient has full scale on his phone * Metformin 1 gram PO BIDM * Ozempic 1 mg weekly on Sundays (recently changed from Trulicity based on insurance coverage) * A1c = 7.8 % (02/27/19) - A1c pending for tomorrow morning (10/09) * Per patient - last A1c was 5.4% Risk Factors for Insulin Resistance: * Recent Surgery: POD #0 s/p right TKA * Diet: T2DM - Assessment & Plan Assessment & Plan: ASSESSMENT: * PRISCILLA is a 64 year old male POD #0 s/p right total knee arthroplasty * Patient did not receive any intraoperative steroids * PMH includes 15 year history of type 2 diabetes mellitus, hypertension, and hyperlipidemia * Spoke with patient regarding current outpatient regimen * Updated med rec to reflect these updates * Patient previously admitted in February for a left total knee arthroplasty - per patient: insulin needs were reduced compared to outpatient needs + significant reduction in A1c as an outpatient since that time (will be conservative in initial dosing of Lantus) * Patient follows with [facility] pharmacist for outpatient diabetes management PLAN FOR INPATIENT GLYCEMIC CONTROL: * Holding outpatient oral diabetes medications * Patient will likely be discharged within a couple of days and can continue Ozempic on Monday * Basal insulin * Lantus 30 units SQ given postoperatively * Lantus scale HS * -0 units if BSG 120 mg/dL or below * -13 units if BSG 121-199 mg/dL * -27 units if BSG 200 mg/dL or above (to equal home dose of Lantus) * Bolus insulin * NovoLog per scale ACHS or Q6hrs while NPO * Goal Range: Low 110 mg/dL - High 140 mg/dL * Correction Factor: 15 mg/dL/unit * Nutritional / Prandial insulin per carb ratio of 1 unit per 5 grams CHO consumed * Overnight checks added at 00,04 with same parameters * Please note that the plan above was derived based on current level of insulin resistance and hospital stress. These recommendations are appropriate for inpatient admission only. Plan of care upon discharge will need to be reassessed to avoid potential outpatient hypo/hyperglycemia. Thank you.
[2019-10-08] MEDS ORDERED: TRANEXAMIC ACID / 0.7% NACL 1,000 MG/100 ML BAG IV SCH (16:33)
[2019-10-08] MEDS: CEFAZOLIN 2000MG 2,000 MG/15 ML SYR IV SCH (16:39)
[2019-10-08] MEDS: CHECK SCOPOLAMINE PATCH PLACEMENT SCH (16:39)
[2019-10-08] MEDS: ASCORBIC ACID 500 MG TAB PO SCH (16:41)
[2019-10-08] MEDS: FERROUS GLUCONATE 324 MG TAB PO SCH (16:41)
[2019-10-08] MEDS ORDERED: INSULIN GLARGINE SOLOSTAR 100 UNITS/ML 3 ML PEN SC SCH (21:00)
[2019-10-08] MEDS: SENNA 8.6 MG TAB PO SCH (21:32)
[2019-10-08] MEDS: SIMVASTATIN 40 MG TAB PO SCH (21:32)
[2019-10-08] MEDS: DOCUSATE SODIUM 100 MG CAP PO SCH (21:32)
[2019-10-08] MEDS: AMLODIPINE BESYLATE 5 MG TAB PO SCH (21:32)
[2019-10-08] MEDS: lisinopriL 40 MG TAB PO SCH (21:32)
[2019-10-08] MEDS: ASPIRIN 81 MG ECTAB PO SCH (21:32)
[2019-10-08] MEDS: TAPENTADOL HCL ER 50 MG TABCR PO SCH (21:35)
[2019-10-09] MEDS: CEFAZOLIN 2000MG 2,000 MG/15 ML SYR IV SCH (00:04)
[2019-10-09] MEDS: KETOROLAC 30 MG/ML VIAL IV SCH ×4 (00:06→18:24)
[2019-10-09] MEDS: CHECK SCOPOLAMINE PATCH PLACEMENT SCH (00:06)
[2019-10-09] MEDS: INSULIN ASPART 100 UNITS/ML 3 ML PEN SC SCH ×6 (00:10→21:18)
[2019-10-09] MEDS: ACETAMINOPHEN 500 MG TAB PO SCH ×3 (05:00→21:36)
[2019-10-09 06:34] LABS: Hematocrit (blood only) 40.5 % (42-52); Hemoglobin 13.5 g/dL (14.0-18.0); Mean Corpuscular Hemoglobin 29.7 pg (25-34); Mean Corpuscular Hgb Conc 33.3 g/dL (32-36); Mean Corpuscular Volume 89.2 fL (80-100); Platelet Count 191 K/uL (130-400); RDW Coefficient of Variation 14.7 % (11.5-14.5); RDW Standard Deviation 47.7 fL (36.4-46.3); Red Blood Count 4.54 M/uL (4.7-6.1); White Blood Count 8.37 K/uL (4.8-10.8)
[2019-10-09 06:55] LABS: Estimated Average Glucose 143 mg/dl; Hemoglobin A1C 6.6 % (4.5-5.6)
[2019-10-09 07:00] LABS: BUN Creatinine Ratio 24.4 (10-20); Calcium 8.2 mg/dl (8.5-10.1); Creatinine Clr Calc Pharmacy 98.7 ml/min; Est GFR (African American) 93.4; Est GFR (Non-African American) 80.6; Potassium 4.4 mmol/L (3.5-5.1)
[2019-10-09] MEDS: FERROUS GLUCONATE 324 MG TAB PO SCH ×2 (08:28→17:40)
[2019-10-09] MEDS: DOCUSATE SODIUM 100 MG CAP PO SCH ×2 (08:28→21:13)
[2019-10-09] MEDS: OXYCODONE HCL IR 5 MG TAB (IMMEDIATE RELEASE) PO PRN ×2 (08:29→17:40)
[2019-10-09] MEDS: MULTIVITAMIN TAB PO SCH (08:29)
[2019-10-09] MEDS: ASPIRIN 81 MG ECTAB PO SCH ×2 (08:29→21:13)
[2019-10-09] MEDS: ASCORBIC ACID 500 MG TAB PO SCH ×2 (08:29→17:40)
[2019-10-09] MEDS: TAPENTADOL HCL ER 50 MG TABCR PO SCH ×2 (08:29→20:07)
[2019-10-09] MEDS ORDERED: LANTUS PER UNIT CHARGE SQ SCH (09:00)
[2019-10-09] MEDS ORDERED: INSULIN GLARGINE SOLOSTAR 100 UNITS/ML 3 ML PEN SC ONE (09:30)
--- NOTE | 2019-10-09 13:58 | Pharmacy Report ---
Pharmacy Glycemic Short Note 2 - Date of Service October 09, 2019 - Glycemic Short BSG Results (Last 24 hours): 10/08/19 10/08/19 10/09/19 17:25 20:29 00:09 Glucose POC Glucose 126 H 135 H 120 H 10/09/19 10/09/19 10/09/19 04:56 06:01 08:25 Glucose 125 H POC Glucose 112 H 136 H 10/09/19 12:18 Glucose POC Glucose 152 H OUTPATIENT ANTIDIABETIC REGIMEN: * Lantus 57 units SQ QAM (last dose on 10/07/19) * Novolog SSI (baseline of 22 units +/- units based on BSG) - patient has full scale on his phone * Metformin 1 gram PO BIDM * Ozempic 1 mg SQ weekly on Sundays (last dose on 10/06/19) ASSESSMENT: * Patient received total of 58 units of insulin yesterday: 43 units of basal Lantus and the rest bolus. * Fasting BSG today was within goal. Post prandial BSGs yesterday were also within goal. * Patient required less basal insulin (40 units of Lantus) during the past admission in February 2019. * Partial Lantus dose was given this AM. Also ordered Lantus based on scale at dinner today. Goal is to try to go back to once daily Lantus in the AM based on patient's home regimen. * Lunch BSG was slightly above goal, therefore tightened CF slightly. Will loosen back to 15 with dinner today since most likely patient will also receive Lantus at that time. PLAN FOR INPATIENT GLYCEMIC CONTROL: * Hold outpatient oral diabetes medications and Ozempic SQ. * Basal insulin * Lantus 20 units SQ this AM * Lantus with dinner at 1700 based on scale as follows: - if BSG less than or equal to 120 = give 0 units - if BSG 120 - 199 = 20 units - if BSG greater than or equal to 200 = 29 units (based on wt. and stress factor of 3) * Bolus insulin: continued * NovoLog per scale ACHS or Q6hrs while NPO * Goal Range: Low 110 mg/dL - High 140 mg/dL * Correction Factor: 15 mg/dL/unit * Nutritional / Prandial insulin per carb ratio of 1 unit per 5 grams CHO consumed PLAN FOR DISCHARGE: * HbA1c = 6.6% * Patient follows with [facility] pharmacist for diabetes management. A1c indicates well controlled diabetes. * Recommend resume home anti-diabetic regimen upon discharge as long as he is not reporting hypoglycemia and follow up with outpatient provider.
[2019-10-09] MEDS ORDERED: INSULIN GLARGINE SOLOSTAR 100 UNITS/ML 3 ML PEN SC SCH (17:00)
--- NOTE | 2019-10-09 18:12 | Progress Note ---
DATE: 10/09/2019 SUBJECTIVE: A 64-year-old gentleman postop day 1 from right knee replacement. He is doing well. Pain is controlled. Therapy went pretty well. No chest pain or shortness of breath. Not feeling dizzy or lightheaded. OBJECTIVE: VITAL SIGNS: Temperature is 37.0. Vital signs stable. GENERAL: Shows a large middle-aged male. He is sitting up in his bed, looks pretty comfortable. EXTREMITIES: Examination of the right leg reveals the dressing to be clean, dry and intact. There is no drainage. He can dorsiflex and plantarflex his foot appropriately. He is neurologically intact. LABORATORY DATA: Hemoglobin 13.5, hematocrit 40.5. Electrolytes are stable. ASSESSMENT: A 64-year-old very large gentleman postoperative day 1 from right knee replacement, doing pretty well. Pain is controlled. He is neurologically intact. PLAN: 1. DVT prophylaxis including thigh-high TEDs, SCDs, and aspirin twice a day. 2. PT/OT. Weight bear as tolerated. Right total knee protocol. 3. Pain control, doing pretty well with current pain regimen. 4. Disposition: Plan to discharge to home with some home health once adequately stable and medically recovered.
[2019-10-09] MEDS: SIMVASTATIN 40 MG TAB PO SCH (21:13)
[2019-10-09] MEDS: lisinopriL 40 MG TAB PO SCH (21:13)
[2019-10-09] MEDS: AMLODIPINE BESYLATE 5 MG TAB PO SCH (21:13)
[2019-10-09] MEDS: SENNA 8.6 MG TAB PO SCH (21:13)
[2019-10-10] MEDS: KETOROLAC 30 MG/ML VIAL IV SCH ×2 (00:55→05:34)
[2019-10-10] MEDS: ACETAMINOPHEN 500 MG TAB PO SCH (05:34)
--- NOTE | 2019-10-10 07:32 | Progress Note ---
DATE: 10/10/2019 SUBJECTIVE: A 64-year-old gentleman postop day 2 from a right knee replacement. He is doing pretty well. Pain is controlled. Little bit of drainage on his dressing site. No other complaints. OBJECTIVE: VITAL SIGNS: Temperature 36.9. Vital signs stable. GENERAL: Shows a large middle-aged male. He is sitting up in his bedside chair, looks pretty comfortable. EXTREMITIES: Examination of the right leg reveals the dressing to be in place. There is a little bit of bloody drainage anteriorly. His calf is soft and supple. He is neurologically intact. ASSESSMENT: A 64-year-old gentleman postop day 2 from a right knee replacement, doing pretty well. Pain is very well controlled. A little bit of drainage, but nothing out of the ordinary. PLAN: 1. DVT prophylaxis including thigh-high TEDs, SCDs, and aspirin twice a day. 2. PT/OT. Weight bear as tolerated. Right total knee protocol. 3. Pain control, doing well with current pain regimen. 4. Disposition: Plan to discharge to home with some home health later today.
[2019-10-10] MEDS: OXYCODONE HCL IR 5 MG TAB (IMMEDIATE RELEASE) PO PRN (08:32)
[2019-10-10] MEDS: DOCUSATE SODIUM 100 MG CAP PO SCH (08:33)
[2019-10-10] MEDS: ASCORBIC ACID 500 MG TAB PO SCH (08:33)
[2019-10-10] MEDS: MULTIVITAMIN TAB PO SCH (08:33)
[2019-10-10] MEDS: FERROUS GLUCONATE 324 MG TAB PO SCH (08:33)
[2019-10-10] MEDS: ASPIRIN 81 MG ECTAB PO SCH (08:33)
[2019-10-10] MEDS: TAPENTADOL HCL ER 50 MG TABCR PO SCH (08:33)
[2019-10-10] MEDS: INSULIN ASPART 100 UNITS/ML 3 ML PEN SC SCH (08:34)
[2019-10-10] MEDS ORDERED: METFORMIN HCL 500 MG TAB PO SCH (09:00)
[2019-10-10] MEDS ORDERED: INSULIN GLARGINE SOLOSTAR 100 UNITS/ML 3 ML PEN SC SCH (09:00)
--- NOTE | 2019-10-14 22:48 | Discharge Summary ---
ADMITTING PHYSICIAN AND SURGEON: Dr. Terrance Colmenares. ADMITTING DIAGNOSIS: Right knee degenerative joint disease. SURGERY PERFORMED: Right total knee arthroplasty. SECONDARY DIAGNOSES: Diabetes, hypertension, elevated cholesterol, obesity. CONSULTS: None obtained. HISTORY AND PHYSICAL EXAMINATION: Well documented in the patient's chart. HOSPITAL COURSE: The patient was admitted on 10/08/2019, underwent total knee arthroplasty, tolerated the procedure well. There were no complications. He was transferred to the PACU postoperatively and later to the orthopedic floor for further care. He was given Ancef for antibiotic prophylaxis, CHELSEY stockings, SCDs and aspirin for DVT prophylaxis. Hemoglobin, hematocrit and vital signs were monitored during his hospital stay and remained stable, did not require any blood transfusions. There were no complications. By postoperative day 2, he was tolerating a diabetic diet. Pain was controlled with oral pain medicine. He was participating in physical therapy. By postop day 2, he was discharged home, set up with home health services. He was given printed discharge instructions including new prescriptions for extra strength Tylenol, aspirin, and oxycodone. Continue his home medications with the exception of his home dosing of aspirin which was changed. Continue physical therapy, weightbearing as tolerated, CHELSEY stockings. Follow up approximately 2 weeks postop or sooner if there are any problems or concerns.
== END 2019-10-10 11:12 | disposition home health service (06) | DRG 470 ==
LOC: ASU 06:32 → 3E 10:35